=== PATIENT | female | born 1990 | race African-American/Black ===

== ENCOUNTER 2021-02-14 06:14 | Emergency (ER) | payer OTHER, SELFPAY ==
--- NOTE | ~2021-02-14 | XR_ITS ---
EXAMINATION: XR KNEE, LEFT CLINICAL INFORMATION: Twisted left knee. COMPARISON: None TECHNIQUE: Four views of the left knee. FINDINGS: There is mild suprapatellar joint effusion. No visible acute fracture, dislocation or subluxation seen. The tricompartment joint space is normal. XR/XR knee LT 4V IMPRESSION: Mild suprapatellar joint effusion. No visible acute fracture, dislocation or subluxation seen.
--- NOTE | 2021-02-14 06:50 | ED.LOWEXIN ---
HPI - Extremity Injury (Lower) General Stated Complaint: Twisted left knee mult. times Time Seen by Provider: 02/14/21 06:49 Source: patient Mode of arrival: wheelchair Limitations: no limitations History of Present Illness MD complaint: knee injury Onset (ago): month(s) Injury: Left: knee Type of Injury: other (falls twists, knee gives out) Place: home Severity: moderate Relieving factors: nothing Exacerbating factors: weight bearing and movement Context: fall and other (twisting) Associated symptoms: swelling and able to partially bear weight Other symptoms: none Treatments prior to arrival: cold therapy, bandage and NSAIDS Related Data Previous Rx's Medication Instructions Recorded cyclobenzaprine 10 mg tablet 10 mg PO TID PRN #14 tab 02/14/21 Allergies Allergy/AdvReac Type Severity Reaction Status Date / Time amoxicillin [AMOXICILLIN] Allergy Unknown UNKNOWN Unverified 04/01/20 19:21 copper [COPPER] Allergy Unknown RASH Unverified 04/01/20 19:21 Review of Systems Review of Systems: Constitutional : No Fever, No Chills ENT/Mouth : No Ear Pain, No Hoarseness, No sore throat Eyes: No Eye Pain, No Swelling, No Redness, No Foreign Body Cardiovascular : No Chest Pain, No SOB Respiratory : No Cough, No Dyspnea Gastrointestinal : No Nausea, No Vomiting, No Diarrhea, No abdominal Pain Genitourinary : No Dysuria, No Hematuria Musculoskeletal : positive joint pain, No Myalgias, pos Joint Swelling Skin : No Skin lacerations, No rash Neuro : No Weakness, No Numbness, No Loss of Consciousness, No Dizziness, No Headache Psych : No Anxiety/Panic, No Depression Heme/Lymph: no easy bruising, no Lymphadenopathy Endocrine : No Polyuria, No Polydipsia All other systems reviewed and are negative [facility] Past Medical History Attestation statement: The following information was validated with the patient. Medical History No active medical problems Social History Social History (Updated 02/14/21 @ 07:07 by Sheyla Mancuso DO) Patient Tobacco Use Status: Never used Tobacco Advance Directives: No Advance Directives Information Provided: No Physical Exam Vital Signs: Appearance: Alert. Oriented X3. No acute distress. Eyes: Pupils equal, round and reactive to light. ENT: Pharynx normal. Neck: Normal inspection. Neck supple. CVS: Normal heart rate and rhythm. Pulses normal. Respiratory: No respiratory distress. Breath sounds normal. Abdomen: Soft and nontender. Skin: Skin warm and dry. Normal skin color. Normal skin turgor. Extremities: No lower extremity edema. L knee mild to moderate joint effusion distal NV intact, ttp along meniscus line unable to full range knee due to pain Neuro: Oriented X 3. No motor deficit. No sensory deficit. MDM - Extremity Injury (Lower) MDM Narrative Medical decision making narrative: 30 yo female with suspected injury of L knee - meniscus / ligament causing repeat twists and knee giving out she is NV intact, had another injury, quad is intact - at this time will obtain xray to r/o fracture, place in immobilizer/crutches, refer to orthopedics, has been seeking MRI and PT from her PCP without luck at this time, given orthopedics/PT numbers. Discharge Plan Discharge Clinical Impression: Effusion of left knee, Internal derangement of knee Patient Disposition: Home, Self-Care Instructions: Knee Pain (ED) Additional Instructions: return to ED for any worsening symptoms or concerns YOU WILL NEED A MRI OF YOUR KNEE TO ASSESS THE LIGAMENTS AND CARTILAGE PHYSICAL THERAPY SHOULD BE CONSIDERED WELL WEAR IMMOBILIZER FOR THE NEXT TWO WEEKS CRUTCHES FOR 1 WEEK Prescriptions: New cyclobenzaprine 10 mg tablet 10 mg PO TID PRN (Reason: muscle spasm) Qty: 14 RF: 0 Referrals: Jocelny Sheth PA-C [[facility]] - 1 week
[2021-02-14 07:15] VITALS: BP 114/79; PULSE 76; RESP 14; O2SAT 98; BMI 32.0
== END 2021-02-14 07:48 | disposition home or self-care (01) ==
LOC: HO.ED 07:04
PROVIDERS: Emergency Provider Emergency Medicine
DX: M25.462 Effusion, left knee (principal); M23.92 Unspecified internal derangement of left knee
CPT/HCPCS: 73564; 99282; 99283